=== PATIENT | female | born 1965 | race Two or more races ===

== ENCOUNTER 2017-02-06 00:33 | Observation (INO) | payer OTHER ==
[2017-02-06] MEDS ORDERED: Iohexol 240 (50 ml) PO ONE (00:42)
[2017-02-06 00:45] VITALS: RESP 16
[2017-02-06 00:59] LABS: HEMATOCRIT 36.8 % (34.0-47.0); MEAN CELL VOLUME 82.4 fl (81.0-99.0); MEAN CORPUSCULAR HEMOGLOBIN 27.1 pg (27.0-31.0); MEAN CORPUSCULAR HGB CONC 32.9 g/dL (33.0-37.0); RED CELL DISTRIBUTION WIDTH 16.2 % (11.5-14.5); WHITE BLOOD COUNT 6.7 K/uL (4.8-10.8)
[2017-02-06 01:08] LABS: ALB/GLOB RATIO 1.3 (1.0-2.1); ALKALINE PHOSPHATASE 78 U/L (38-126); ALT/SGPT 124 U/L (9-52); AST/SGOT 170 U/L (14-36); BILIRUBIN,TOTAL 0.8 mg/dl (0.2-1.3); BLOOD UREA NITROGEN 14 mg/dl (7-17); CALCIUM 9.4 mg/dL (8.4-10.2); CARBON DIOXIDE 26 mmol/L (22-30); CHLORIDE 104 mmol/L (98-107); GFR AFRICAN-AMERICAN > 60; GLUCOSE,RANDOM 115 mg/dL (65-105); LIPASE 124 U/L (23-300); POTASSIUM 3.7 MMOL/L (3.6-5.0); SODIUM 139 mmol/l (132-148); TOTAL PROTEIN 7.9 G/DL (6.3-8.2)
[2017-02-06] MEDS ORDERED: Iohexol 240 (50 ml) ONE (01:10)
[2017-02-06] MEDS ORDERED: Sodium Chloride 0.9% 1,000 ML IV STA (01:18)
[2017-02-06] MEDS ORDERED: Sodium Chloride 0.9% 50 ML IV ONE (03:38)
[2017-02-06] MEDS ORDERED: Iohexol 300 100 ML IJ ONE (03:38)
--- NOTE | 2017-02-06 04:43 | CT ---
EXAM: CT Abdomen and Pelvis With Intravenous Contrast CLINICAL HISTORY: 52 years old, female; Pain; Abdominal pain; Generalized; Additional info: Abdomina pain, vomiting TECHNIQUE: Axial computed tomography images of the abdomen and pelvis with intravenous contrast. This CT exam was performed using one or more of the following dose reduction techniques: automated exposure control, adjustment of the mA and/or kV according to patient size, and/or use of iterative reconstruction technique. Coronal and sagittal reformatted images were created and reviewed. CONTRAST: 95 mL of [id number] administered intravenously. COMPARISON: No relevant prior studies available. FINDINGS: Limitations: Motion artifact - mild. Lower thorax: Minimal atelectasis. ABDOMEN: Liver: Fatty infiltration. Gallbladder and bile ducts: Minimal haziness about gallbladder vs motion artifact. Calcified gallstone. Mild extrahepatic ductal dilatation. Pancreas: No ductal dilation. No mass. Spleen: No splenomegaly. Adrenals: No mass. Kidneys and ureters: No mass. No hydronephrosis. Stomach and bowel: Segmental areas of underdistention of sigmoid colon. No definite mural thickening. No obstruction. Appendix: Normal caliber. No inflammation. PELVIS: Bladder: Unremarkable. Reproductive: IUD. ABDOMEN and PELVIS: Intraperitoneal space: No significant fluid collection. No free air. Bones/joints: No acute fracture. Soft tissues: Tiny umbilical hernia containing fat. Vasculature: Unremarkable. No abdominal aortic aneurysm. Lymph nodes: No pathologically enlarged lymph nodes. IMPRESSION: 1. Cholelithiasis with mild ductal dilatation. Recommend ultrasound. 2. Incidental/non-acute findings are described above.
--- NOTE | 2017-02-06 04:55 | ED PDOC ---
HPI: Abdomen Time Seen by Provider: 02/06/17 00:37 Chief Complaint (Nursing): GI Problem Chief Complaint (Provider): Epigastric pain, vomiting History Per: Patient History/Exam Limitations: no limitations Onset/Duration Of Symptoms: Days Outside of [place] travel?: No Current Symptoms Are (Timing): Still Present Severity: Moderate Pain Scale Rating Of: 5 Location Of Pain/Discomfort: Epigastric Additional Complaint(s): Pt was seen yesterday in [facility] for vomiting after eating a cheese burger from [employer]. Pt was diagnosed with UTI. Pt states after eating an [place] dish at home made with lots of oil she began having pain and vomiting again. Pt vomiting on arrival to the ER. Past Medical History Reviewed: Historical Data, Nursing Documentation, Vital Signs Vital Signs: Last Vital Signs Temp 98.0 F 02/06/17 00:35 Pulse 84 02/06/17 00:35 Resp 16 02/06/17 00:35 BP 147/58 L 02/06/17 00:35 Pulse Ox 100 02/06/17 00:35 - Medical History PMH: Hypercholesterolemia - Surgical History Surgical History: No Surg Hx - Family History Family History: States: Unknown Family Hx - Living Arrangements Living Arrangements: With Family - Social History Current smoker - smoking cessation education provided: No - Immunization History Hx Tetanus Toxoid Vaccination: No Hx Influenza Vaccination: No Hx Pneumococcal Vaccination: No - Home Medications Home Medications: Ambulatory Orders Medication Instructions Recorded Nitrofurantoin Macrocrystals 1 cap PO BID #14 cap 02/05/17 [Macrobid] Pantoprazole Sodium [Protonix] 20 mg PO DAILY #15 ect 02/05/17 - Allergies Allergies/Adverse Reactions: Allergies Allergy/AdvReac Type Severity Reaction Status Date / Time No Known Allergies Allergy Verified 02/04/17 23:49 Review of Systems ROS Statement: Except As Marked, All Systems Reviewed And Found Negative Gastrointestinal: Positive for: Nausea, Vomiting, Abdominal Pain Physical Exam - Reviewed Nursing Documentation Reviewed: Yes Vital Signs Reviewed: Yes - Physical Exam Appears: Positive for: Well, Non-toxic, No Acute Distress Head Exam: Positive for: ATRAUMATIC, NORMAL INSPECTION, NORMOCEPHALIC Skin: Positive for: Normal Color, Warm, DRY Eye Exam: Positive for: Normal appearance ENT: Positive for: Normal ENT Inspection Neck: Positive for: Normal, Painless ROM Cardiovascular/Chest: Positive for: Regular Rate, Rhythm Respiratory: Positive for: Normal Breath Sounds. Negative for: Accessory Muscle Use Gastrointestinal/Abdominal: Positive for: Bowel Sounds, Soft, Tenderness ( Epigastric, RUQ ). Negative for: Normal Exam Back: Positive for: Normal Inspection Extremity: Positive for: Normal ROM Neurologic/Psych: Positive for: Alert, Oriented - Laboratory Results Result Diagrams: 02/06/17 00:50 02/06/17 00:50 - ECG O2 Sat by Pulse Oximetry: 100 Medical Decision Making Medical Decision Making: Discussed gallbladder stones and non-emergent surgery and emergent surgery for cholecystitis. Labs with, dilation of the duct on CT. US ordered. Disposition - Clinical Impression Clinical Impression: Vomiting - Patient ED Disposition Is Patient to be Admitted: Transfer of Care - Disposition Disposition: Transfer of Care Disposition Time: 05:12 Condition: GOOD
--- NOTE | 2017-02-06 06:24 | ED PDOC ---
- Laboratory Results Result Diagrams: 02/06/17 00:50 02/06/17 00:50 - ECG O2 Sat by Pulse Oximetry: 100 Medical Decision Making Medical Decision Makin: Pt. is feeling better, signed out to me from SARAH Bryant [id number]: Patient is being transferred to Dr. Hodge pending ultrasound. Scribe Attestation: Documented by Nga Woody acting as a scribe for Konstantin Raygoza MD. Provider Scribe Attestation: All medical record entries made by the Scribe were at my direction and personally dictated by me. I have reviewed the chart and agree that the record accurately reflects my personal performance of the history, physical exam, medical decision making, and the department course for this patient. I have also personally directed, reviewed, and agree with the discharge instructions and disposition. Disposition - Clinical Impression Clinical Impression: Vomiting, Gallstones - POA Present On Arrival: None - Disposition Disposition: Transfer of Care Disposition Time: 07:00 Condition: GOOD Patient Signed Over To: Alfonso Hodge
--- NOTE | 2017-02-06 07:13 | ED PDOC ---
- Laboratory Results Result Diagrams: 02/06/17 00:50 02/06/17 00:50 - ECG O2 Sat by Pulse Oximetry: 100 (RA) Pulse Ox Interpretation: Normal Medical Decision Making Medical Decision Makin:00 Patient was signed out to me by Konstantin Raygoza MD pending ultrasound and final disposition. 10:25 US FINDINGS: LIVER: Measures cm in length. Heterogeneous echogenicity of the liver parenchyma. No mass. No intrahepatic bile duct dilatation. GALLBLADDER: 3 centimeter gallstone. There is mild gallbladder wall thickening. COMMON BILE DUCT: Measures mm. No stones. No dilatation. PANCREAS: Unremarkable as visualized. No mass. No ductal dilatation. RIGHT KIDNEY: Measures cm in length. Normal echogenicity. No calculus, mass, or hydronephrosis. AORTA: No aneurysmal dilatation. IVC: Unremarkable. OTHER FINDINGS: None . IMPRESSION: Large gallstone. Mild gallbladder wall thickening. Fatty liver. Scribe Attestation: Documented by Lorraine Caraballo, acting as a scribe for Alfonso Hodge MD. Provider Scribe Attestation: All medical record entries made by the Scribe were at my direction and personally dictated by me. I have reviewed the chart and agree that the record accurately reflects my personal performance of the history, physical exam, medical decision making, and the department course for this patient. I have also personally directed, reviewed, and agree with the discharge instructions and disposition. Disposition - Clinical Impression Clinical Impression: Vomiting, Gallstones, Cholecystitis - POA Present On Arrival: None - Disposition Disposition: Admitted as In-Patient Disposition Time: 10:55 Condition: GOOD
--- NOTE | 2017-02-06 10:27 | US ---
HISTORY: epigastric pain COMPARISON: None. TECHNIQUE: Sonographic evaluation of the right upper quadrant of the abdomen. FINDINGS: LIVER: Measures cm in length. Heterogeneous echogenicity of the liver parenchyma. No mass. No intrahepatic bile duct dilatation. GALLBLADDER: 3 centimeter gallstone. There is mild gallbladder wall thickening. COMMON BILE DUCT: Measures mm. No stones. No dilatation. PANCREAS: Unremarkable as visualized. No mass. No ductal dilatation. RIGHT KIDNEY: Measures cm in length. Normal echogenicity. No calculus, mass, or hydronephrosis. AORTA: No aneurysmal dilatation. IVC: Unremarkable. OTHER FINDINGS: None . IMPRESSION: Large gallstone. Mild gallbladder wall thickening. Fatty liver.
[2017-02-06] MEDS ORDERED: Ampicillin/Sulbactam 3 GM in Sodium Chloride 0.9% 100 ML IVPB STA (10:53)
[2017-02-06 11:38] VITALS: BP 118/74; PULSE 81; TEMP 99; O2SAT 98
--- NOTE | 2017-02-06 13:13 | CP.PCM.CON ---
History of Present Illness - History of Present Illness History of Present Illness: 52 y.o. female comes to the hospital c/o epigastric and RUQ abdominal pain since last night. Patient also reports nausea and vomiting. Denies any fever or chills. Passing flatus and having normal bowel movements. Denies any change in urine or stool color. Of note patient was seen at [facility] 2 days ago for the similar issue and was told that she has a gallstone and was discharged from the ER with prescription for Pantaprozole. Patient states that she has started experiencing these symptoms about 1 months ago on and off after eating fatty and fried foods. Currently states that abdominal pain has completely resolved. Denies any sick contacts at home, no urinary symptoms. Review of Systems - Constitutional Constitutional: As Per HPI - EENT Eyes: Other (unremarkable) Ears: Other (unremarkable) Nose/Mouth/Throat: Other (unremarkable) - Breasts Breasts: Other (unremarkable) - Cardiovascular Cardiovascular: Other (unremarkable) - Respiratory Respiratory: Other (unremarkable) - Gastrointestinal Gastrointestinal: As Per HPI - Genitourinary Genitourinary: As Per HPI - Reproductive: Female Reproductive:Female: Other (unremarkable) - Musculoskeletal Musculoskeletal: Other (unremarkable) - Integumentary Integumentary: Other (unremarkable) - Neurological Neurological: Other (unremarkable) - Psychiatric Psychiatric: Other (unremarkable) - Endocrine Endocrine: Other (unremarkable) - Hematologic/Lymphatic Hematologic: Other (unremarkable) Past Patient History - Past Social History Smoking Status: Never Smoked - CARDIAC Hx Hypercholesterolemia: Yes - PSYCHIATRIC Hx Substance Use: No - SURGICAL HISTORY Hx Surgeries: No - ANESTHESIA Hx Anesthesia: No Meds Allergies/Adverse Reactions: Allergies Allergy/AdvReac Type Severity Reaction Status Date / Time No Known Allergies Allergy Verified 02/04/17 23:49 Physical Exam - Constitutional Appears: Well, Non-toxic, No Acute Distress - Head Exam Head Exam: ATRAUMATIC, NORMAL INSPECTION, NORMOCEPHALIC - Eye Exam Eye Exam: EOMI, Normal appearance, PERRL Pupil Exam: NORMAL ACCOMODATION - ENT Exam ENT Exam: Mucous Membranes Moist, Normal Exam - Neck Exam Neck exam: Positive for: Full Rom, Normal Inspection - Respiratory Exam Respiratory Exam: Clear to Auscultation Bilateral, NORMAL BREATHING PATTERN - Cardiovascular Exam Cardiovascular Exam: REGULAR RHYTHM, +S1, +S2 - GI/Abdominal Exam GI & Abdominal Exam: Normal Bowel Sounds, Soft Additional comments: NT, ND, no rebound, no guarding, negative Gambino's sign - Rectal Exam Rectal Exam: Deferred - Extremities Exam Extremities exam: Positive for: full ROM, normal inspection - Back Exam Back exam: NORMAL INSPECTION - Neurological Exam Neurological exam: Alert, CN II-XII Intact, Oriented x3 - Psychiatric Exam Psychiatric exam: Normal Affect, Normal Mood - Skin Skin Exam: Dry, Intact, Normal Color, Warm Results - Vital Signs Recent Vital Signs: Last Vital Signs Temp 99 F 02/06/17 11:37 Pulse 81 02/06/17 11:37 Resp 16 02/06/17 11:37 BP 118/74 02/06/17 11:37 Pulse Ox 98 02/06/17 11:37 - Labs Result Diagrams: 02/06/17 00:50 02/06/17 00:50 - Imaging and Cardiology CT scan - abdomen Status: Image reviewed by me, Report reviewed by me Assessment & Plan - Assessment and Plan (Free Text) Assessment: 52 y.o. female with biliary colic currently asymptomatic Plan: - Clear for discharge home from the surgical stand point - Percocet 5/325 mg po Q4h prn pain for home - Will schedule for elective cholecystectomy - Patient was specifically instructed to stay away from fatty and fried foods before the surgery - Patient was also instructed that if she develops pain and fever again to come back to the hospital
--- NOTE | 2017-02-06 18:04 | CP.PCM.HP ---
History of Present Illness - History of Present Illness History of Present Illness: CC: Abdominal Pain and Vomiting HPI: 52 y.o. female comes to the hospital c/o epigastric and RUQ abdominal pain since last night. Patient also reports nausea and vomiting. Denies any fever or chills. Passing flatus and having normal bowel movements. Denies any change in urine or stool color. Of note patient was seen at [facility] 2 days ago for the similar issue and was told that she has a gallstone and was discharged from the ER with prescription for Pantaprozole. Patient states that she has started experiencing these symptoms about 1 months ago on and off after eating fatty and fried foods. Currently states that abdominal pain has completely resolved. Denies any sick contacts at home, no urinary symptoms. Present on Admission - Present on Admission Any Indicators Present on Admission: No Review of Systems - Review of Systems All systems: reviewed and no additional remarkable complaints except Past Patient History - Infectious Disease Hx of Infectious Diseases: None - Past Medical History & Family History Past Medical History?: No Past Family History: Reviewed and not pertinent - Past Social History Smoking Status: Never Smoked Alcohol: None Drugs: Denies - CARDIAC Hx Hypercholesterolemia: Yes - PSYCHIATRIC Hx Substance Use: No - SURGICAL HISTORY Hx Surgeries: No - ANESTHESIA Hx Anesthesia: No Meds Home Medications: Home Medication List Medication Instructions Recorded Confirmed Type Pantoprazole Sodium [Protonix] 20 mg PO DAILY #15 ect 02/06/17 Rx Allergies/Adverse Reactions: Allergies Allergy/AdvReac Type Severity Reaction Status Date / Time No Known Allergies Allergy Verified 02/04/17 23:49 Physical Exam - Constitutional Appears: Well - Head Exam Head Exam: ATRAUMATIC, NORMAL INSPECTION, NORMOCEPHALIC - Eye Exam Eye Exam: EOMI, Normal appearance, PERRL Pupil Exam: NORMAL ACCOMODATION, PERRL - ENT Exam ENT Exam: Mucous Membranes Moist, Normal Exam - Neck Exam Neck exam: Positive for: Normal Inspection - Respiratory Exam Respiratory Exam: Clear to Auscultation Bilateral, NORMAL BREATHING PATTERN - Cardiovascular Exam Cardiovascular Exam: REGULAR RHYTHM - GI/Abdominal Exam GI & Abdominal Exam: Normal Bowel Sounds, Soft. absent: Tenderness - Rectal Exam Rectal Exam: NORMAL INSPECTION - Exam Exam: Circumcision, NORMAL INSPECTION External exam: NORMAL EXTERNAL EXAM Speculum exam: NORMAL SPECULUM EXAM Bimanual exam: NORMAL BIMANUAL EXAM - Extremities Exam Extremities exam: Positive for: normal inspection - Back Exam Back exam: NORMAL INSPECTION - Neurological Exam Neurological exam: Alert, CN II-XII Intact, Normal Gait, Oriented x3, Reflexes Normal - Psychiatric Exam Psychiatric exam: Normal Affect, Normal Mood - Skin Skin Exam: Dry, Intact, Normal Color, Warm Results - Vital Signs Recent Vital Signs: Last Vital Signs Temp 99 F 02/06/17 11:37 Pulse 81 02/06/17 11:37 Resp 16 02/06/17 11:37 BP 118/74 02/06/17 11:37 Pulse Ox 98 02/06/17 11:37 - Labs Result Diagrams: 02/06/17 00:50 02/06/17 00:50 - Imaging and Cardiology CT scan - abdomen Status: Report reviewed by me Additional comment: IMPRESSION: 1. Cholelithiasis with mild ductal dilatation. Recommend ultrasound. 2. Incidental/non-acute findings are described above. Assessment & Plan (1) Biliary colic Assessment and Plan: Surgery Evaluated him and recommended discharge, and to have elective Cholecystectomey as an outpatient Agree with the assessment and wi;ll d/C Home on pPI and PAin medication. Status: Acute Priority: Low
--- NOTE | 2017-02-06 18:31 | CP.PCM.DIS ---
Provider - Provider Date of Admission: 02/06/17 05:13 Attending physician: Reyna Casarez MD Time Spent in preparation of Discharge (in minutes): 15 Diagnosis - Discharge Diagnosis (1) Biliary colic Status: Acute Priority: Low Hospital Course - Lab Results Lab Results: Most Recent Lab Values WBC 6.7 K/uL (4.8-10.8) 02/06/17 00:50 RBC 4.47 Mil/uL (3.80-5.20) 02/06/17 00:50 Hgb 12.1 g/dL (12.0-16.0) 02/06/17 00:50 Hct 36.8 % (34.0-47.0) 02/06/17 00:50 MCV 82.4 fl (81.0-99.0) 02/06/17 00:50 MCH 27.1 pg (27.0-31.0) 02/06/17 00:50 MCHC 32.9 g/dL (33.0-37.0) L 02/06/17 00:50 RDW 16.2 % (11.5-14.5) H 02/06/17 00:50 Plt Count 288 K/uL (130-400) 02/06/17 00:50 Sodium 139 mmol/l (132-148) 02/06/17 00:50 Potassium 3.7 MMOL/L (3.6-5.0) 02/06/17 00:50 Chloride 104 mmol/L (98-107) 02/06/17 00:50 Carbon Dioxide 26 mmol/L (22-30) 02/06/17 00:50 Anion Gap 13 (10-20) 02/06/17 00:50 BUN 14 mg/dl (7-17) 02/06/17 00:50 Creatinine 0.7 mg/dL (0.7-1.2) 02/06/17 00:50 Est GFR ( Amer) > 60 02/06/17 00:50 Est GFR (Non-Af Amer) > 60 02/06/17 00:50 Random Glucose 115 mg/dL (65-105) H 02/06/17 00:50 Calcium 9.4 mg/dL (8.4-10.2) 02/06/17 00:50 Total Bilirubin 0.8 mg/dl (0.2-1.3) 02/06/17 00:50 AST 170 U/L (14-36) H 02/06/17 00:50 ALT 124 U/L (9-52) H 02/06/17 00:50 Alkaline Phosphatase 78 U/L (38-126) 02/06/17 00:50 Total Protein 7.9 G/DL (6.3-8.2) 02/06/17 00:50 Albumin 4.5 g/dL (3.5-5.0) 02/06/17 00:50 Globulin 3.4 gm/dL (2.2-3.9) 02/06/17 00:50 Albumin/Globulin Ratio 1.3 (1.0-2.1) 02/06/17 00:50 Lipase 124 U/L (23-300) 02/06/17 00:50 Discharge Exam - Head Exam Head Exam: ATRAUMATIC, NORMAL INSPECTION, NORMOCEPHALIC Discharge Plan - Discharge Medications Prescriptions: Pantoprazole Sodium [Protonix] 20 mg PO DAILY #15 ect - Follow Up Plan Condition: GOOD Disposition: HOME/ ROUTINE Instructions: Abdominal Pain (ED)
== END 2017-02-06 19:00 | disposition home or self-care (01) ==
LOC: H.ER 00:33 → H.EROBSV 05:13 → H.ERHOLD 11:14 → H.EROBSV 18:07 → H.ERHOLD 18:54
PROVIDERS: ADMIT Internal Medicine; ATTEND Internal Medicine
DX: R10.84 Generalized abdominal pain (principal); E78.00 Pure hypercholesterolemia, unspecified